=== PATIENT | female | born 1960 | race American Indian/Alaskan Native ===

== ENCOUNTER 2021-09-03 07:16 | Day surgery (SDC) | payer OTHER ==
[~2021-09-03 07:16] MED LIST: SODIUM CHLORIDE 0.9% 1000 ML 1,000 ML IV SCH
[2021-09-03] MEDS ORDERED: PHENYLEPHRINE/NS 1,000 MCG/10 ML SYRINGE (OR USE) IV ONE (07:47)
[2021-09-03] MEDS ORDERED: ePHEDrine SULFATE 50 MG/1 ML INJ ONE (07:47)
[2021-09-03] MEDS ORDERED: LIDOCAINE MPF (2%) 20 MG/1 ML VIAL 5 ML ONE (07:55)
[2021-09-03] MEDS ORDERED: WATER FOR IRRIG STERILE 1,000 ML BOTTLE ONE (07:55)
[2021-09-03] MEDS ORDERED: WATER FOR IRRIG STERILE 250 ML BOTTLE IR ONE (07:57)
[2021-09-03] MEDS ORDERED: propofoL 200 MG/20 ML VIAL IV ONE ×3 (07:59→08:12)
--- NOTE | 2021-09-03 08:10 | Anesthesia Consultation ---
Anesthesia Consult and Med Hx Date of service: 09/03/21 - Airway Anesthetic Teeth Evaluation: Good ROM Head & Neck: Adequate Mental/Hyoid Distance: Adequate Mallampati Class: Class II Intubation Access Assessment: Probably Good - Pulmonary Exam CTA: Yes - Cardiac Exam Cardiac Exam: RRR - Pre-Operative Health Status ASA Pre-Surgery Classification: ASA1 Proposed Anesthetic Plan: MAC - Pulmonary Hx Smoking: No Hx Respiratory Symptoms: No - Cardiovascular System Hx Hypertension: No Hx Cardia Arrhythmia: No - Central Nervous System Hx Neuromuscular Disorder: No - Gastrointestinal Hx Gastroesophageal Reflux Disease: No - Endocrine Hx Renal Disease: No Hx Liver Disease: No Hx Thyroid Disease: No - Hematic Hx Anemia: No - Other Systems Hx Alcohol Use: No Hx Obesity: No - Additional Comments Anesthesia Medical History Comments: No h/o GAC. No FHAC.
--- NOTE | 2021-09-03 08:10 | Anesthesia Day of Surgery ---
Anesthesia Day of Surgery - Day of Surgery Patient Examined: Yes Patient H&P Reviewed: Yes Patient is NPO: Yes
--- NOTE | 2021-09-03 09:37 | Procedure Note ---
Date of procedure: 09/03/21 Pre-op diagnosis: Colon Polyp Screening/ F/H/O Colon cancer (brother) Post-op diagnosis: other (Multiple, Small recto-Sigmoid Polyps/ Few Left colon Diverticuli/ Mild to Moderate Internal and External Hemorrhoids/ Normal, Terminal Ileal Mucosa) Procedure: Colonoscopy with Cold Biopsy Anesthesia: [facility] [place] Surgeon: ANNA MARIE NORWOOD Estimated blood loss: minimal Pathology: list Specimen disposition: to lab Condition: stable Disposition: same day (Encourage fiber intake, avoid aspirin and NSAID for 5 days, otherwise resume previous medication; also use OTC Hemorrhoidal medication and F/U in 1 to 2 weeks ([phone]).)
--- NOTE | 2021-09-03 09:48 | Operative Report ---
DATE OF SURGERY: 09/03/2021 PROCEDURE PERFORMED: Colonoscopy. INDICATIONS: This is a 61-year-old -[place] female who has a family history of colon cancer. The patient's brother had colon cancer. The patient is having a colonoscopy done as part of colon polyp screening. Last colonoscopy was about 5 years ago. DESCRIPTION OF PROCEDURE: Procedure was done after getting informed consent with MAC anesthesia. Initial rectal examination was unremarkable. The instrument was passed through the rectum onto the cecum, which was identified with ileocecal valve and appendiceal orifice. Cecum was also visualized on the retroverted view. Visualization was fair to good. Mucosa was washed with copious amounts of water. Terminal ileum was intubated briefly, showed normal mucosa. Cecum, ascending colon, transverse colon showed normal mucosa. There were a few diverticula noted in the left colon. In the rectosigmoid area, there were several small polyps, possibly hyperplastic that were removed by cold biopsy and the rectum showed mild to moderate internal hemorrhoids as well as mild to moderate external hemorrhoids. There was minimal bleeding associated with the procedure. No complications associated with the procedure. ASSESSMENT: Colon polyp screening, family history of colon cancer, the patient's brother had colon cancer, a few small rectosigmoid polyps, few left colon diverticula, mild to moderate internal and external hemorrhoids, normal terminal ileal mucosa. PLAN: To encourage the patient to take hemorrhoidal medications. Encouraged fiber intake, avoid aspirin and aspirin-related products and follow up in the office in 1-2 weeks' time. Procedure was done in the GI lab with assistance of the GI lab team, which included the GI nurse, the industrial service technician and with assistance of Anesthesia. TID: [id number] RECEIPT: [id number] SREEDHAR/BETHANY
--- NOTE | 2021-09-03 13:41 | Post Anesthesia Evaluation ---
- Post Anesthesia Evaluation Patient Participated: Yes Airway Patent: Yes Stable Respiratory Function: Yes Nausea/Vomiting: No Temp > 96.8F: Yes Pain Manageable: Yes Adequeate Hydration: Yes Anesthesia Complications: No Block Receding Appropriately: Not Applicable Patient on Ventilator: No
[2021-09-03 16:37] VITALS: BP 143/78
== END 2021-09-03 10:05 | disposition home or self-care (01) ==
LOC: GIO 07:16
DX: K92.1 Melena (principal); K63.5 Polyp of colon; K57.30 Diverticulosis of large intestine without perforation or abscess without bleeding; K64.8 Other hemorrhoids; Z80.0 Family history of malignant neoplasm of digestive organs; Z79.899 Other long term (current) drug therapy; Z86.010 Personal history of colon polyps
CPT/HCPCS: 45380; 88305; J2370; J2704; J3490; J7030